=== PATIENT | male | born 1955 | race Caucasian/White ===

== ENCOUNTER 2023-07-05 06:53 | Day surgery (SDC) | payer OTHER, MEDICAID ==
[~2023-07-05] VITALS: Ht 185.4 cm; Wt 99.8 kg
[2023-07-05] VITALS (8 sets, daily range): BP systolic 117–139; BP diastolic 74–100; PULSE 71–85; RESP 16–22; O2SAT 96–98
[~2023-07-05 06:53] MED LIST: ASPI-543 PO; ATOR20TA50 PO; CALC-312 PO; CARV3.1240 PO; FURO40TA4 PO; HYDR-4798 PO; LACT10SO3 PO; LISI-275 PO; LORA-1121 PO; MORP15TA PO; PANT40T PO; POTA-220 PO
[2023-07-05] MEDS ORDERED: IODIXANOL 320MG/ML 100ML BTL IV ONE ×3 (07:39→10:56)
[2023-07-05] MEDS ORDERED: LIDOCAINE 2%HCL (LOCAL ANESTH.) INJ 20ML MDV ONE ×2 (07:39→10:09)
[2023-07-05 08:49] LABS: Basophils # (auto) 0 10 ^3/uL (0-0.2); Basophils % (auto) 0.7 % (0.0-2.0); Eosinophils # (auto) 0.4 10 ^3/uL (0-0.8); Eosinophils % (auto) 6.6 % (0.0-7.0); Hematocrit 37.4 % (41.0-53.0); Hemoglobin 12.4 g/dL (13.5-17.5); Lymphocytes # (auto) 1.7 10 ^3/uL (0.4-5.4); Lymphocytes % (auto) 30.7 % (10.0-50.0); Mean Corpuscular Hemoglobin 30.9 pg (28.0-32.0); Mean Corpuscular Hgb Conc. 33.3 g/dL (32.0-36.0); Mean Corpuscular Volume 92.8 fL (80.0-100.0); Monocytes # (auto) 0.5 10 ^3/uL (0-1.3); Neutrophils # (auto) 2.8 10 ^3/uL (1.6-8.6); Nucleated Red Blood Cells % 0.1 %; Red Blood Cells 4.03 10^6/uL (4.5-5.90); Red Cell Distribution Width 12.2 % (11.8-14.3); White Blood Cell 5.4 10^3/uL (4.4-10.8)
[2023-07-05 09:12] LABS: Calcium 8.4 mg/dL (8.5-10.1); Potassium 3.9 mmol/L (3.5-5.1)
[2023-07-05 09:13] LABS: INR 0.99 (0.9-1.15); Partial Thromboplastin Time 28.2 SEC (24.5-34.5); Prothrombin Time 10.4 sec (9.3-11.8)
[2023-07-05 09:15] LABS: BUN/Creatinine Ratio 15.1 (10.0-20.0)
[2023-07-05] MEDS ORDERED: ANGIOMAX 250 MG VIAL IV ONE (10:18)
[2023-07-05] MEDS ORDERED: SODIUM CHL 0.9% 50 ML ONE (10:19)
[2023-07-05] MEDS ORDERED: VERAPAMIL 2.5MG/ML INJ 2ML VIAL IV ONE (10:19)
[2023-07-05] MEDS ORDERED: MIDAZOLAM HCL 2MG/2ML 2ml VIAL (1mg/ml) ONE (10:19)
[2023-07-05] MEDS ORDERED: fentaNYL CITRATE 100 MCG/2 ML VL ONE (10:19)
[2023-07-05] MEDS ORDERED: HEPARIN SODIUM (PORCINE) 5000 UNITS/ML 1ML VIAL ONE (11:02)
== END 2023-07-05 13:51 | disposition home or self-care (01) ==
LOC: CATH 06:53
PROVIDERS: ATTEND Internal Medicine
DX: R94.39 Abnormal result of other cardiovascular function study (principal); I25.118 Atherosclerotic heart disease of native coronary artery with other forms of angina pectoris; I25.82 Chronic total occlusion of coronary artery; I77.819 Aortic ectasia, unspecified site; I10 Essential (primary) hypertension; E78.5 Hyperlipidemia, unspecified; Z79.899 Other long term (current) drug therapy; Z79.01 Long term (current) use of anticoagulants; Z79.82 Long term (current) use of aspirin
CPT/HCPCS: 36415; 80048; 85025; 85610; 85730; 93459; C1769; C1894; J1644; J2250; J3010; J7030; Q9967; 99152; 99153